=== PATIENT | male | born 1940 | race Caucasian/White ===

== ENCOUNTER → 2018-03-27 | Outpatient (CLI) | payer MEDICARE, OTHER | END | disposition home or self-care (01) | LOC: LAB 08:00 | DX: Z01.818 Encounter for other preprocedural examination (principal); M17.11 Unilateral primary osteoarthritis, right knee | CPT/HCPCS: 86850; 86900; 86901; 87081 ==

== ENCOUNTER 2018-04-06 06:32 | Observation (INO) | payer MEDICARE, OTHER ==
[2018-04-06] MEDS: ACETAMINOPHEN 500 MG TAB PO (07:00)
[2018-04-06] MEDS: LACTATED RINGER'S 1,000 ML IV (07:00)
[2018-04-06] MEDS: CLINDAMYCIN 600 MG/D5W (PMX) 50 ML IVPB (07:00)
[2018-04-06] MEDS ORDERED: CLINDAMYCIN 900 MG/50 ML D5W IVPB IVPB (07:00)
[2018-04-06] MEDS: ACETAMINOPHEN 1000MG/100ML IV 100 ML IVPB (07:49)
[2018-04-06] MEDS: DEXAMETHASONE 4 MG/ML 1 ML INJ IV (07:50)
[2018-04-06] MEDS ORDERED: KETOROLAC 15 MG INJ IV (08:30)
[2018-04-06] MEDS ORDERED: hydrALAzine 20 MG INJ IV (08:30)
[2018-04-06] MEDS ORDERED: FENTAnyl 50 MCG/ML VIAL IV ×3 (08:30)
[2018-04-06] MEDS ORDERED: HYDROmorphONE 0.5 MG/0.5 ML SYG IV ×2 (08:30)
[2018-04-06] MEDS ORDERED: OXYCODONE/ACETAMINOPHEN (5/325) TAB PO ×2 (08:30)
[2018-04-06] MEDS ORDERED: MIDAZOLAM 1 MG/ML 2 ML INJ IV (08:30)
[2018-04-06] MEDS ORDERED: TRIMETHOBENZAMIDE 100 MG/ML VIAL IM ×2 (08:30)
[2018-04-06] MEDS ORDERED: LABETALOL HCL 20MG INJ IV (08:30)
[2018-04-06] MEDS ORDERED: KETOROLAC 30 MG INJ IV (08:30)
[2018-04-06] MEDS ORDERED: ALBUTEROL 0.083% (NEB) 2.5 MG/3 ML AMP HHN (08:30)
[2018-04-06] MEDS ORDERED: IPRATROPIUM (NEB) 0.5 MG/2.5 ML AMP HHN (08:30)
[2018-04-06] MEDS ORDERED: NALBUPHINE HCL (10 MG/1 ML) INJ IV (08:30)
[2018-04-06] MEDS ORDERED: NALOXONE (0.4 MG/ML) INJ IV ×2 (08:30→09:30)
[2018-04-06] MEDS ORDERED: MEPERIDINE 25 MG INJ IV (08:30)
[2018-04-06] MEDS ORDERED: DIPHENHYDRAMINE 50 MG INJ IV ×3 (08:30→09:30)
[2018-04-06] MEDS ORDERED: HYDROmorphONE 1 MG/5 ML IV SYRINGE IV ×3 (08:30)
[2018-04-06] MEDS ORDERED: FENTAnyl 50 MCG/ML VIAL (08:35)
[2018-04-06] MEDS ORDERED: NEOSTIGMINE 3 MG/3 ML SYRINGE (08:35)
[2018-04-06] MEDS ORDERED: ONDANSETRON 4 MG INJ (08:35)
[2018-04-06] MEDS ORDERED: CEFAZOLIN 1 GM INJ (08:35)
[2018-04-06] MEDS ORDERED: GLYCOPYRROLATE 0.4 MG INJ (08:35)
[2018-04-06] MEDS ORDERED: ROCURONIUM 50 MG INJ (08:35)
[2018-04-06] MEDS ORDERED: PROPOFOL 20 ML (08:35)
[2018-04-06] MEDS ORDERED: MIDAZOLAM 1 MG/ML 2 ML INJ (08:35)
[2018-04-06] MEDS ORDERED: ROPIVACAINE 0.5 % 30 ML VIAL (08:40)
[2018-04-06] MEDS ORDERED: morphine SULFATE/PF (10 MG/10 ML) INJ (08:40)
[2018-04-06] MEDS ORDERED: SENNA/DOCUSATE NA (8.6MG/50MG) TAB PO (09:30)
[2018-04-06] MEDS ORDERED: NA PHOSPHATE/BIPHOS 133 ML ENEMA PR (09:30)
[2018-04-06] MEDS ORDERED: oxyCODONE 5 MG TAB PO ×3 (09:30)
[2018-04-06] MEDS ORDERED: NACL 0.9% 3 ML SYG IV (09:30)
[2018-04-06] MEDS ORDERED: BISACODYL 10 MG SUPP PR (09:30)
[2018-04-06] MEDS: TRANEXAMIC ACID 1,000 MG in D5W 100 ML AT INCISION X1 IVPB (09:35)
[2018-04-06] MEDS: BACITRACIN 50000 UNITS INJ (10:58)
[2018-04-06] MEDS: POLYMYXIN B 500000 UNIT INJ (10:58)
[2018-04-06] MEDS: DOCUSATE SODIUM 100 MG CAP PO (11:26)
[2018-04-06] MEDS: ONDANSETRON 4 MG INJ IV ×2 (11:26→14:42)
[2018-04-06] MEDS: ASPIRIN (EC) 325 MG TAB PO (11:26)
[2018-04-06] MEDS: EPHEDrine SULFATE 50 MG/5 ML SYG IV (11:43)
[2018-04-06] MEDS: TRANEXAMIC ACID 1,000 MG in D5W 100 ML AT CLOSURE X1 IVPB (12:15)
[2018-04-06] MEDS: SOD CHLORIDE 0.9% 1,000 ML IV (12:35)
[2018-04-06] MEDS: GABAPENTIN 100 MG CAP PO ×2 (14:53→21:33)
[2018-04-06] MEDS: VANCOMYCIN 1 GM (PMX) 250 ML IVPB (17:59)
[2018-04-06] MEDS: PANTOPRAZOLE (EC) 40 MG TAB PO (17:59)
[2018-04-06] MEDS: CALCIUM CARBONATE 750 MG CHEW TAB PO (17:59)
[2018-04-06] MEDS: QUETIAPINE 100 MG TAB PO (21:32)
[2018-04-06] MEDS: MEMANTINE 10 MG TAB PO (21:33)
[2018-04-07] MEDS: BETHANECHOL 25 MG TAB PO ×2 (00:33→05:08)
[2018-04-07] MEDS: MAGNESIUM HYDROXIDE 30ML CUP PO (00:33)
[2018-04-07] MEDS: SOD CHLORIDE 0.9% 1,000 ML IV (00:34)
[2018-04-07] MEDS: ZOLPIDEM 5 MG TAB PO (01:42)
[2018-04-07] MEDS: VANCOMYCIN 1 GM (PMX) 250 ML IVPB (05:07)
[2018-04-07] MEDS: PANTOPRAZOLE (EC) 40 MG TAB PO (05:08)
[2018-04-07 05:14] LABS: ADD MAN DIFF? NO
[2018-04-07 05:39] LABS: WHITE BLOOD COUNT 10.8 10^3/ul (4.8-10.8)
[2018-04-07 05:39] LABS: BASOPHILS % 0.2 % (0.0-2.0); HEMOGLOBIN 11.8 g/dl (14.0-18.0); LYMPHOCYTES % 8.8 % (15.0-51.0); MEAN CORPUSCULAR HEMOGLOBIN 29.1 pg (29.0-33.0); MEAN CORPUSCULAR HGB CONC 34.7 g/dl (32.0-37.0); MEAN CORPUSCULAR VOLUME 83.7 fl (82.0-101.0); MEAN PLATELET VOLUME 9.9 fl (7.4-10.4); MONOCYTES % 8.9 % (0.0-11.0); NEUTROPHIL # 8.8 10^3/ul (1.6-7.5); NEUTROPHILS % 81.7 % (39.0-77.0); PLATELET COUNT 212 10^3/UL (140-415); RED BLOOD COUNT 4.06 10^6/ul (4.70-6.10); RED CELL DISTRIBUTION WIDTH 14.1 % (11.5-14.5)
[2018-04-07 06:31] LABS: ANION GAP 9 (5-13); BLOOD UREA NITROGEN 23 mg/dl (7-20); CALCIUM 8.6 mg/dl (8.4-10.2); CARBON DIOXIDE 25 mmol/L (21-31); CHLORIDE 103 mmol/L (97-110); CREATININE 0.84 mg/dl (0.61-1.24); GLUCOSE 107 mg/dl (70-220); POTASSIUM 4.9 mmol/L (3.5-5.1); SODIUM 137 mmol/L (135-144)
[2018-04-07] MEDS: LACTOBACILLUS RHAMNOSUS CAP PO (09:24)
[2018-04-07] MEDS: GABAPENTIN 100 MG CAP PO ×2 (09:24→14:57)
[2018-04-07] MEDS: ASPIRIN (EC) 325 MG TAB PO (09:24)
[2018-04-07] MEDS: CELECOXIB 100 MG CAP PO (09:24)
[2018-04-07] MEDS: MEMANTINE 10 MG TAB PO (09:24)
[2018-04-07] MEDS: MIRTAZAPINE 15 MG TAB PO (09:24)
[2018-04-07] MEDS: DOCUSATE SODIUM 100 MG CAP PO (09:25)
[2018-04-07] MEDS ORDERED: ONDANSETRON 4 MG INJ IV (09:30)
[2018-04-07 12:22] LABS: HSV 2 IGG ANTIBODY 4.85 index
[2018-04-08] MEDS ORDERED: PANTOPRAZOLE (EC) 40 MG TAB PO (06:00)
== END 2018-04-07 16:40 | disposition home health service (06) ==
LOC: SDS 06:32 → REC 09:30 → MS1 12:25
DX: M17.11 Unilateral primary osteoarthritis, right knee (principal); R00.1 Bradycardia, unspecified; F03.90 Unspecified dementia, unspecified severity, without behavioral disturbance, psychotic disturbance, mood disturbance, and anxiety
CPT/HCPCS: 27447; 73560; 80048; 85025; 86692; 86850; 86900; 86901; 87081; 88304; 88311; 97110; 97116; 97161; 97167